=== PATIENT | male | born 1980 ===

== ENCOUNTER 2018-10-26 20:55 | Emergency (ER) | payer OTHER ==
[2018-10-26 21:26] VITALS: BP 119/77; PULSE 85; RESP 17; O2SAT 99
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
--- NOTE | 2018-10-27 13:41 | CT ---
Date of service: 10/26/2018 PROCEDURE: CT Cervical Spine without contrast HISTORY: trauma COMPARISON: None available. TECHNIQUE: Axial computed tomography images were obtained of the cervical spine without the use of intravenous contrast. Coronal and sagittal reformatted images were created and reviewed. Radiation dose: Total exam DLP = 568.63 mGy-cm. This CT exam was performed using one or more of the following dose reduction techniques: Automated exposure control, adjustment of the mA and/or kV according to patient size, and/or use of iterative reconstruction technique. FINDINGS: VERTEBRAE: No fracture. Normal alignment. No destructive bony lesion. DISCS/SPINAL CANAL/NEURAL FORAMINA: C6-7 disc bulge with posterior ridging. Associated disc space narrowing. PARASPINAL SOFT TISSUES: Unremarkable. OTHER FINDINGS: None. IMPRESSION: No fracture.
== END 2018-10-27 00:36 | disposition home or self-care (01) ==
LOC: ED 20:55
DX: S13.4XXA Sprain of ligaments of cervical spine, initial encounter (principal); V49.40XA Driver injured in collision with unspecified motor vehicles in traffic accident, initial encounter; Y92.410 Unspecified street and highway as the place of occurrence of the external cause